=== PATIENT | male | born 1985 | race Caucasian/White ===

== ENCOUNTER 2016-07-17 01:16 | Emergency (ER) | payer SELFPAY ==
[2016-07-17 01:33] VITALS: BP 146/93; PULSE 86; RESP 16; O2SAT 98
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
== END 2016-07-17 04:44 | disposition home or self-care (01) ==
LOC: SED 01:16
DX: Z02.89 Encounter for other administrative examinations (principal)